=== PATIENT | male | born 1945 | race Caucasian/White ===

== ENCOUNTER → 2016-11-19 | Outpatient (CLI) | payer OTHER, MEDICARE ==
[~2016-11-19] MED LIST: ASCO10003 PO; B-COCAP2 PO; CHOL100010 PO; VITA10004 PO
== END | disposition home or self-care (01) ==
LOC: C.LAB 07:51
PROVIDERS: ATTEND Radiology Radiation Oncology
DX: C61 Malignant neoplasm of prostate (principal)

== ENCOUNTER → 2016-11-26 | Outpatient (CLI) | payer OTHER, MEDICARE ==
[2016-11-26 14:46] VITALS: BP 113/73; PULSE 103; TEMP 37; O2SAT 93
--- NOTE | 2016-12-01 18:28 | Radiation Oncology Follow-Up ---
Radiation Oncology Follow-Up Date of Visit 11/26/2016 Radiation Completion Date 09/11/15 Diagnosis (1) Prostate cancer Status: Acute Onset Date: 01/09/2015 Permanent Comment: STAGING: Prostate, adenocarcinoma, juliana 4 + 5, PSA 50.2, cT1c, group IIB Rise in PSA, Pretreatment PSA 50.200 Status post ultrasound-guided biopsies 01/09/2015, Juliana 3+3, 3+4, 4+3, 4+4, and 4+5 Hormone suppression planned for 28 months total, last injection 03/2016 Status post completion of radiation therapy utilizing IMRT/IGRT completed 2015 received 8100 cGy Last Edited By: Cydney Medina on Apr 30, 2016 14:36 History of Present Illness Mr. Collins is a 71-year-old gentleman who presents with high risk prostate cancer treated with neoadjuvant, concurrent Lupron with radiation therapy and is now currently receiving long-term androgen deprivation therapy for 28 months. The patient completed radiation therapy on 09/11/2015. The patient now presents [id number] follow-up evaluation. Currently he is doing relatively well overall. He states that he has minimal urinary symptoms. His IPSS score today is 1/35. His EPIC QOL score was 2/60. He is tolerating the Lupron relatively well. He does continue to have some hot flashes and weight gain which does frustrate him. Otherwise overall he is very content with this treatment and has no complaints. He did recently have a repeat Lupron injection in August 2016. Allergies Coded Allergies: No Known Allergies (Unverified , 12/27/14) Home Medications Scheduled Ascorbic Acid (Vitamin C), 1 TAB PO DAILY Cholecalciferol (Vitamin D), 1,000 INTER.UNIT PO WK Vitamin B Cmplx/Vitc/Folic Ac (Nephrocaps), 1 CAP PO DAILY Vitamin E (Vitamin E), 1 CAP PO DAILY Review of Systems Gastrointestinal: Symptoms: WNL Oral: Symptoms: No Problems Respiratory: Symptoms: WNL Urinary: Symptoms: Nocturia Comments: Nocturia x 1 (depending on H20 intake), See AUA & EPIC Skin: Symptoms: No Problems Physical Exam General Appearance: WD/WN, no apparent distress Eyes: normal inspection ENT: normal ENT inspection Neck: supple, no adenopathy Respiratory/Chest: chest non-tender, lungs clear, normal breath sounds, no respiratory distress Cardiovascular: regular rate, rhythm, no edema, no gallop, no JVD, no murmur Abdomen: normal bowel sounds Extremities: normal range of motion Neurologic/Psychiatric: finish repairer II-XII nml as tested, no motor/sensory deficits, alert, oriented x 3 Additional Exam Notes: Rectal Exam: Deferred by patient Laboratory Studies Test 11/19/16 08:05 Prostate Specific Antigen < 0.010 ng/ml (0.000-4.000) Assessment & Plan Mr. Collins is a 71-year-old gentleman who presents with very high risk prostate cancer treated with definitive external beam radiation therapy with neoadjuvant , concurrent and long-term androgen deprivation therapy. His radiation therapy completed in August 2015. He is doing well with no significant issues. He will see Dr. Dwight Niño to obtain a final Lupron injection. I would like to see Mr. Collins back in 6 months for follow-up evaluation. He was told to call to call if he has any questions or concerns or would like to be seen earlier. Total Time In Follow-Up I spent 20 minutes examining and counseling the patient. I spent 15 minutes completing this note. HORSE BREAKER Copy To Randy Leyva M.D.; Dwight Niño M.D.
== END | disposition home or self-care (01) ==
LOC: C.ONC 14:58
PROVIDERS: ATTEND Physician Assistant Medical
DX: C61 Malignant neoplasm of prostate (principal)

== ENCOUNTER → 2017-06-23 | Outpatient (CLI) | payer OTHER, MEDICARE ==
[2017-06-23 15:22] VITALS: BP 106/71; PULSE 65; TEMP 36.5; O2SAT 97
--- NOTE | 2017-06-24 11:24 | Radiation Oncology Follow-Up ---
Radiation Oncology Follow-Up Date of Visit Jun 24, 2017. Radiation Completion Date finished IMRT / IGRT 09-11-2015 Diagnosis (1) Prostate cancer Status: Acute Onset Date: 01/09/2015 Permanent Comment: STAGING: Prostate, adenocarcinoma, juliana 4 + 5, PSA 50.2, cT1c, group IIB Rise in PSA, Pretreatment PSA 50.200 Status post ultrasound-guided biopsies 01/09/2015, Urich 3+3, 3+4, 4+3, 4+4, and 4+5 Hormone suppression planned for 28 months total, last injection 03/2016 Status post completion of radiation therapy utilizing IMRT/IGRT completed 2015 received 8100 cGy Completed ADT (Lupron) in 03/2017 - 24 months total Last Edited By: Cydney Medina on Jun 24, 2017 11:[address] Collins is a 72-year-old gentleman with a history as described above. He completed a course of long-term androgen deprivation therapy with external beam radiation therapy which completed in August 2015. He recently met with Dr. Niño from urology in March 2017 and together they decided to withhold further Lupron as he has completed [address] Niño recommended a repeat PSA in July 2017 to determine his overall response. He now presents for follow-up evaluation. Overall, he is doing very well. He denies any hematuria or any blood per rectum. He states his bowel movements are normal. His urinary IPSS score is 1/ 35. His EPIC QoL score is 2/60. He has no other significant complaints. Allergies Coded Allergies: No Known Allergies (Unverified , 12/27/14) Home Medications Scheduled Ascorbic Acid (Vitamin C), 1 TAB PO DAILY Cholecalciferol (Vitamin D), 1,000 INTER.UNIT PO WK Vitamin B Cmplx/Vitc/Folic Ac (Nephrocaps), 1 CAP PO DAILY Vitamin E (Vitamin E), 1 CAP PO DAILY Review of Systems Gastrointestinal: Symptoms: WNL Oral: Symptoms: No Problems Respiratory: Symptoms: WNL Urinary: Symptoms: Nocturia Comments: nocturia times Skin: Symptoms: No Problems Physical Exam Vital Signs Date Time Temp Pulse Resp B/P (MAP) Pulse Ox O2 Delivery O2 Flow Rate FiO2 06/23/17 15:22 36.5 65 18 106/71 97 General Appearance: WD/WN, no apparent distress Eyes: normal inspection, PERRL, EOMI ENT: normal ENT inspection Neck: supple, no adenopathy Respiratory/Chest: chest non-tender, lungs clear, normal breath sounds, no respiratory distress Cardiovascular: regular rate, rhythm, no edema, no gallop, no JVD Abdomen: normal bowel sounds Anal / Rectum: Deferred rectal exam today by patient. Extremities: normal range of motion, non-tender, no pedal edema, no calf tenderness Neurologic/Psychiatric: manager qa II-XII nml as tested, alert, oriented x 3 Skin: normal color, warm/dry, no rash Pain Management Patient Reports Pain: No Side: Bilateral Patient Preferred Pain Scale: 0 - 10 Initial Pain Intensity: 0.0 Pain Management Plan Patient has no pain and requires no pain management plan. Laboratory Laboratory Results: were reviewed, and pertinent findings noted below Laboratory Comments: PSA 03/31/2017 (< 0.01) PSA 11/19/2016 (< 0.01) PSA 06/27/2015 (0.313) Pathology Pathology Results: not applicable Imaging Imaging Studies: not applicable Assessment & Plan Mr. Collins is a 72-year-old gentleman with high risk prostate cancer. He has completed a course of long-term androgen deprivation therapy (Lupron for 24 months) and external beam radiation therapy (08/2015). His most recent PSA was in March 2017 and was undetectable. He is scheduled to undergo a another PSA in July 2017 which has been ordered by Dr. Niño from urology. He is doing well without any long-term complications from radiation therapy. We are happy with his progress. We would like to see him back in 6 months for follow- up evaluation. We have recommended continuing with PSA surveillance as per urology. He was encouraged to call us with any further questions or concerns or if he would like to be seen earlier for follow-up evaluation. Total Time (Attending) In Follow-Up I spent 20 minutes examining and counseling the patient. I spent 15 minutes completing this note. COMMERCIAL INTELLIGENCE MANAGER Copy To Randy Leyva M.D.; Dwight Niño M.D.
== END | disposition home or self-care (01) ==
LOC: C.ONC 15:16
PROVIDERS: ATTEND Physician Assistant Medical
DX: Z08 Encounter for follow-up examination after completed treatment for malignant neoplasm (principal); Z92.3 Personal history of irradiation; Z85.46 Personal history of malignant neoplasm of prostate

== ENCOUNTER → 2017-08-18 | Outpatient (CLI) | payer OTHER, MEDICARE | END | disposition home or self-care (01) | LOC: C.LAB 16:06 | PROVIDERS: ATTEND Urology | DX: C61 Malignant neoplasm of prostate (principal) ==